=== PATIENT | male | born 1960 | race Caucasian/White ===

== ENCOUNTER 2022-03-09 07:37 | Day surgery (SDC) | payer OTHER, BC ==
[2022-03-07 16:41] VITALS: BMI 25.1
[2022-03-09] MEDS ORDERED: PROPOFOL 20 ML ONE ×5 (07:53)
[2022-03-09] MEDS ORDERED: LIDOCAINE HCL/PF 2% SDV 5ML VIAL ONE (07:54)
[2022-03-09 08:37] VITALS: TEMP 96.8
[2022-03-09 09:12] VITALS: BP 112/69; PULSE 61
== END 2022-03-09 09:13 | disposition home or self-care (01) ==
LOC: FASU-ENDO 07:37
PROVIDERS: ATTEND Internal Medicine Gastroenterology
PROC: 0DJD8ZZ Inspection of Lower Intestinal Tract, Via Natural or Artificial Opening Endoscopic (ICD-10-PCS; principal; 2022-03-09 08:12)
DX: Z12.11 Encounter for screening for malignant neoplasm of colon (principal); Z80.0 Family history of malignant neoplasm of digestive organs